=== PATIENT | female | born 2000 | race African-American/Black ===

== ENCOUNTER 2022-12-15 14:09 | Emergency (ER) | payer OTHER, SELFPAY ==
[2022-12-15 14:20] VITALS: BP 143/96; PULSE 83; RESP 18; TEMP 37; O2SAT 100
--- NOTE | 2022-12-15 14:43 | ED.HA ---
HPI - Headache General Chief Complaint: Headache Stated Complaint: headache Source: patient and RN notes reviewed Mode of arrival: ambulatory Limitations: no limitations History of Present Illness HPI Narrative: 22-year-old female presented for complaint of headache, onset yesterday. States pain is mostly in the front but is all over. Reports some body aches. Has not taken anything for symptoms. States she laid in bed all day. Denies dizziness, vision changes, nausea, vomiting or fever. Denies hx migraines. Related Data Home Medications Medication Instructions Recorded Confirmed sulfamethoxazole 800 1 tablet PO BID 12/15/22 12/15/22 mg-trimethoprim 160 mg tablet Allergies Allergy/AdvReac Type Severity Reaction Status Date / Time cephalexin [From Zytoprotec] Allergy Hives Verified 12/15/22 14:29 Review of Systems Review of Systems: CONSTITUTIONAL: Denies body aches, fever, chills, or sweats. EYES: Denies visual changes, redness, or discharge. ENT: Denies rhinorrhea, congestion, sore throat, or otalgia. CARDIOVASCULAR: Denies chest pain, palpitations, or edema. RESPIRATORY: Denies cough or dyspnea. GASTROINTESTINAL: Denies abdominal pain, nausea, vomiting, or diarrhea. GENITOURINARY: Denies dysuria or hematuria. SKIN: Denies rash, itching, or wounds. MUSCULOSKELETAL: Denies back pain, joint pain, or myalgia. NEUROLOGIC: Endorses headache, denies numbness, tingling, or weakness, dizziness All systems reviewed & are unremarkable except as noted in HPI and below PMFSH Past Medical History Medical History (Updated 12/15/22 @ 15:22 by Adelaida Mullins, ANNITA) No pertinent past medical history Comments At time of signature, I have reviewed and agree with nursing past medical, surgical, social and family history unless otherwise noted. Please see nursing chart for further information. There is no relevant family history pertinent to the presenting complaint Exam Narrative: GENERAL: mildly ill-appearing, non toxic HEAD: Normocephalic, atraumatic. EYES: PERRLA, EOMI. ENT: Mucous membranes pink and moist. No rhinorrhea. TMs normal bilaterally. NECK: Normal AROM. Supple. No lymphadenopathy. CHEST: No respiratory distress. Clear to auscultation. HEART: Regular rate and rhythm. No murmur appreciated. Normal peripheral pulses. ABDOMEN: Soft, nontender, nondistended, normal active bowel sounds. MUSCULOSKELETAL: No bony tenderness. EXTREMITIES: Normal range of motion. No edema. SKIN: Warm, dry, no rash. Capillary refill normal. Normal skin turgor. NEURO:No focal deficits. Alert and oriented x3. Finger to nose intact bilaterally. EOMs intact without nystagmus. Intact sensation in face. Hearing intact bilaterally. Shoulder shrug intact. Strength 5/5 bilateral upper extremities. Ambulatory exam with a normal based, steady gait. PSYCH: Normal affect. Course Course Emergency Course: Patient is aware of diagnosis, understands and agrees to treatment plan. Anticipatory guidance given. Patient agrees to follow-up as directed and is aware of reasons to seek care at the emergency department. Portions of this record may have been created with voice recognition software Level of Care: Express Care Visit Vital Signs Vital signs: Vital Signs Temperature 98.6 F 12/15/22 14:20 Pulse Rate 83 12/15/22 14:20 Respiratory Rate 18 12/15/22 14:20 Blood Pressure 143/96 H 12/15/22 14:20 Pulse Oximetry 100 12/15/22 14:20 Oxygen Delivery Room Air 12/15/22 14:20 Temperature 98.6 F 12/15/22 14:20 Pulse Rate 83 12/15/22 14:20 Respiratory Rate 18 12/15/22 14:20 Blood Pressure 143/96 H 12/15/22 14:20 Pulse Oximetry 100 12/15/22 14:20 Oxygen Delivery Room Air 12/15/22 14:20 MDM - Headache MDM Narrative Medical decision making narrative: Result of neg covid reviewed with pt. Discussed physical exam findings. Advised supportive measures and signs/symptoms to go to the ER
== END 2022-12-15 15:24 | disposition home or self-care (01) ==
PROVIDERS: Emergency Provider Nurse Practitioner Family
DX: R51.9 Headache, unspecified (principal); Z20.822 Contact with and (suspected) exposure to COVID-19
CPT/HCPCS: 87426; 99213; C9803; G0463

== ENCOUNTER 2023-02-22 18:46 | Emergency (ER) | payer OTHER, SELFPAY ==
[2023-02-22 18:57] VITALS: BP 135/96; PULSE 80; RESP 16; TEMP 37.3; O2SAT 98
--- NOTE | 2023-02-22 19:08 | ED.SKABFB ---
HPI - Skin/Abscess/Foreign Bdy General Chief complaint: Skin/Abscess/Foreign Body Stated complaint: skin irritation,red,itchy Time Seen by Provider: 02/22/23 19:08 Source: patient Mode of arrival: ambulatory Limitations: no limitations History of Present Illness HPI narrative: 22 yo F presents with c/o itchy hives to arms, low back and chest. States intermittent but itchign has been constant for 6 days. has not taken any benadryl because she says makes her too sleepy. Denies use of any new products, clothing. All systems reviewed and negative except as noted above. Related Data Allergies Allergy/AdvReac Type Severity Reaction Status Date / Time cephalexin [From Keflex] Allergy Hives Verified 12/15/22 14:29 Review of Systems Review of Systems: CONSTITUTIONAL: Denies fever, chills, or sweats. EYES: Denies visual changes, redness, or discharge. ENT: Denies rhinorrhea, congestion, sore throat, or otalgia. CARDIOVASCULAR: Denies chest pain, palpitations, or edema. RESPIRATORY: Denies cough or dyspnea. GASTROINTESTINAL: Denies abdominal pain, nausea, vomiting, or diarrhea. GENITOURINARY: Denies dysuria or hematuria. SKIN: Reports hives and itching. MUSCULOSKELETAL: Denies back pain, joint pain, or myalgia. NEUROLOGIC: Denies headache, numbness, or weakness. PSYCHIATRIC: Denies anxiety or depression. All other systems reviewed are negative, except as documented in HPI. [facility] Past Medical History Medical History (Updated 02/22/23 @ 19:26 by Marla Mcmillan NP) No pertinent past medical history Comments At time of signature, agree with nursing past medical, surgical, social and family history. There is no relevant family history pertinent to the presenting complaint. Exam Narrative: GENERAL: This is a well-nourished, well-developed patient, in no apparent distress. HEAD: normocephalic, atraumatic. EYES: PERRL. Sclera clear/white. Vision is grossly intact. EARS: External ears normal NOSE: External nose normal NECK: Neck supple, non-tender without lymphadenopathy, masses or thyromegaly. CARDIOVASCULAR: Regular rate and rhythm without murmurs, gallops, or rubs. RESPIRATORY: Clear to auscultation. Breath sounds equal bilaterally. No wheezes, rales, or rhonchi. SKIN: warm, Dry, intact with no suspicious lesions, good texture and turgor. erythematous hive like lesions to bilatearl upper arms. 5 to 6 hives noted. no other rash. NEURO: awake, alert, and oriented to person, place and time. There were no obvious focal neurologic abnormalities. EXTREMITIES: No joint tenderness, effusion, or edema noted. Course Course Level of Care: Express Care Visit Vital Signs Vital signs: Vital Signs Temperature 37.3 C 02/22/23 18:57 Pulse Rate 80 02/22/23 18:57 Respiratory Rate 16 02/22/23 18:57 Blood Pressure 135/96 H 02/22/23 18:57 Pulse Oximetry 98 02/22/23 18:57 Oxygen Delivery Room Air 02/22/23 18:57 Temperature 37.3 C 02/22/23 18:57 Pulse Rate 80 02/22/23 18:57 Respiratory Rate 16 02/22/23 18:57 Blood Pressure 135/96 H 02/22/23 18:57 Pulse Oximetry 98 02/22/23 18:57 Oxygen Delivery Room Air 02/22/23 18:57 MDM - Skin/Abscess/Foreign Bdy MDM Narrative Medical decision making narrative: Patient is aware of diagnosis, understands and agrees to treatment plan. Anticipatory guidance given. Patient agrees to follow-up as directed and is aware of reasons to seek care at the emergency department. Portions of this record may have been created with voice recognition software the Differential Diagnosis Differential diagnosis: Likely urticaria Discharge Plan Discharge Clinical Impression: Hives Patient Disposition: Home, Self-Care Condition: Stable Instructions: Urticaria (ED) Additional Instructions: Take medications as prescribed. Hydroxyzine may cause drowsiness, do not drive while taking. See your doctor if symptoms not improving. Prescri
[2023-02-22] MEDS: prednisoLONE ORAL SOLN 30 MG/10 ML SOLUTION 40 MG PO (19:27)
== END 2023-02-22 19:40 | disposition home or self-care (01) ==
PROVIDERS: Emergency Provider Nurse Practitioner Family; PCP Nurse Practitioner
DX: L50.9 Urticaria, unspecified (principal)
CPT/HCPCS: 99213; A9270; G0463

== ENCOUNTER 2023-12-03 08:33 | Emergency (ER) | payer OTHER, SELFPAY ==
[2023-12-03 08:50] VITALS: BP 144/99; PULSE 80; RESP 16; TEMP 36.6; O2SAT 100
[2023-12-03] MEDS: ONDANSETRON HCL ODT 4 MG TABLET PO (09:25)
--- NOTE | 2023-12-03 09:26 | ED.HA ---
HPI - Headache General Chief Complaint: Headache Stated Complaint: headache, chills, nausea Time Seen by Provider: 12/03/23 09:04 Source: patient Mode of arrival: ambulatory Limitations: no limitations History of Present Illness HPI Narrative: this is a 23-year-old female that presents to the emergency department for a headache. Reports associated chills and myalgias. Does report she gets headaches quite often. No history of migraines. She is not on any chronic medications for this. She has not taken anything today for pain. Denies any sick contacts. Denies fevers, vomiting, cough, congestion, or sore throat. Related Data Allergies Allergy/AdvReac Type Severity Reaction Status Date / Time cephalexin [From Keflex] Allergy Hives Verified 12/15/22 14:29 Review of Systems Review of Systems: CONSTITUTIONAL: Reports chills. Denies fever ENT: Denies rhinorrhea, congestion, sore throat, or otalgia. RESPIRATORY: Denies cough GASTROINTESTINAL: Reports nausea. Denies vomiting MUSCULOSKELETAL: Reports myalgia. NEUROLOGIC: Reports headache. Denies numbness, or weakness. All systems reviewed & are unremarkable except as noted in HPI and below PMFSH Past Medical History Medical History (Updated 12/03/23 @ 11:23 by Tamara Pinzon PA-C) No pertinent past medical history Social History Social History (Updated 12/03/23 @ 09:28 by Tamara Pinzon PA-C) Smoking status: Never smoker Exam Narrative: GENERAL: Well-appearing, well-nourished, and in no acute distress. HEAD: Normocephalic, atraumatic. EYES: PERRLA and EOMI. ENT: Nares clear, no rhinorrhea or epistaxis. Mucous membranes moist. Oropharynx without tonsillar hypertrophy exudate or other lesions. Bilateral TMs pearly beal non-bulging NECK: Supple. No adenopathy or masses. CHEST: Clear to auscultation. No respiratory distress. No wheezes rales or rhonchi HEART: Regular rate and rhythm. No murmur heard. Normal peripheral pulses. EXTREMITIES: Normal range of motion. No edema. Strength equal in bilateral upper and lower extremities (5/5) SKIN: Warm, dry, no rash. NEURO: No focal deficits. Alert and oriented x3. Cranial nerves 2-12 grossly intact PSYCH: Normal mood and affect Course Course Emergency Course: patient updated on her workup. Resting comfortably. Vital Signs Vital signs: Vital Signs Temperature 98 F 12/03/23 08:50 Pulse Rate 80 12/03/23 08:50 Respiratory Rate 16 12/03/23 08:50 Blood Pressure 144/99 H 12/03/23 08:50 Pulse Oximetry 100 12/03/23 08:50 Oxygen Delivery Room Air 12/03/23 08:50 Temperature 98 F 12/03/23 08:50 Pulse Rate 84 12/03/23 10:05 Respiratory Rate 16 12/03/23 10:05 Blood Pressure 137/99 H 12/03/23 10:05 Pulse Oximetry 100 12/03/23 10:05 Oxygen Delivery Room Air 12/03/23 08:50 MDM - Headache MDM Narrative Medical decision making narrative: patient presents to the emergency department for a headache ongoing since yesterday. Reporting associated chills, myalgias, nausea. She is afebrile and nontoxic appearing. Her vitals are stable. She is neurologically intact. No recent injuries. Influenza, RSV and COVID screens are negative. Patient resting comfortably after Tylenol and Zofran. She was updated on her workup and agrees with plan of care. Instructed to have further follow-up with her primary provider. She was given warnings to return to the ER Differential Diagnosis Differential diagnosis: Likely migraine, tension headache, sinusitis and other ( COVID, influenza, RSV, viral syndrome) Lab Data Attestation: I reviewed the patient's lab results. Labs: Lab Results 12/03/23 Range/Units 09:27 Influenza A (RT-PCR) Negative (Negative) Influenza B (RT-PCR) Negative (Negative) RSV (RT-PCR) Negative (Negative) SARS-CoV-2 RNA (RT-PCR) Negative (Negative) Critical Care Time Critical Care Time Critical Care Time: No Discharge Plan Dis
[2023-12-03] MEDS: ACETAMINOPHEN ELIXIR 325 MG/10.15 ML UDC 650 MG PO (09:31)
[2023-12-03 10:05] VITALS: BP 137/99; PULSE 84; RESP 16; O2SAT 100
[2023-12-03 10:11] LABS: Influenza A QL RT-PCR Negative (Negative); Influenza B QL RT-PCR Negative (Negative); RSV RNA, RT-PCR Negative (Negative); SARS-CoV-2 RNA PCR Negative (Negative)
== END 2023-12-03 11:38 | disposition home or self-care (01) ==
PROVIDERS: Emergency Provider Physician Assistant
DX: R51.9 Headache, unspecified (principal); Z20.822 Contact with and (suspected) exposure to COVID-19
CPT/HCPCS: 87637; 99283; A9270